=== PATIENT | female | born 1950 | race Hispanic/Latino ===

== ENCOUNTER 2016-08-25 23:33 | Inpatient (IN) | payer MEDICARE ==
[2016-08-26] MEDS ORDERED: Oxycodone/Acetaminophen 5/325 mg Tab PO ONE (00:43)
[2016-08-26] MEDS ORDERED: Oxycodone/Acetaminophen 5/325 mg Tab ONE (00:46)
--- NOTE | 2016-08-26 01:08 | ED PDOC ---
HPI: Trauma/Fall - HPI Time Seen by Provider: 08/25/16 23:50 Chief Complaint (Nursing): Trauma Chief Complaint (Provider): Post trip and fall History Per: Patient History/Exam Limitations: no limitations Onset/Duration Of Symptoms: Hrs Additional Complaint(s): Anneliese Copeland, a 66 year old patient presents to the ED post trip and fall. The patient states that she fell down several stairs and hit her left rib cage. the patient reports that she feels pain in her left ribs when she takes deep breaths. She denies head trauma, loss of consciousness, fever, cough and allergies. Past Medical History Reviewed: Historical Data, Nursing Documentation, Vital Signs Vital Signs: Last Vital Signs Temp 98.6 F 08/25/16 23:45 Pulse 69 08/25/16 23:45 Resp 16 08/25/16 23:45 BP 133/75 08/25/16 23:45 Pulse Ox 96 08/26/16 03:14 - Medical History PMH: Anxiety, Hyperlipidemia - Surgical History Surgical History: No Surg Hx - Family History Family History: States: Unknown Family Hx - Living Arrangements Living Arrangements: With Family - Social History Current smoker - smoking cessation education provided: Yes SMOKER/PACKS PER DAY:: 1 Drugs: Denies - Home Medications Home Medications: Ambulatory Orders Medication Instructions Recorded ALPRAZolam [Xanax] 0.25 mg PO HS 08/26/16 Aspirin [Aspirin Chewable] 81 mg PO DAILY 08/26/16 Ezetimibe [Zetia] 10 mg PO DAILY 08/26/16 Mv-Mn/Iron/Folic Acid/Herb 190 1 tab PO DAILY 08/26/16 [Vitamin D3 Complete Caplet] PARoxetine [Paxil] 30 mg PO DAILY 08/26/16 Pravastatin Sodium [Pravachol] 40 mg PO DAILY 08/26/16 buPROPion XL [Wellbutrin XL] 300 mg PO DAILY 08/26/16 - Allergies Allergies/Adverse Reactions: Allergies Allergy/AdvReac Type Severity Reaction Status Date / Time No Known Allergies Allergy Verified 08/26/16 00:33 Review of Systems Constitutional: Positive for: Other (no allergies). Negative for: Fever Respiratory: Negative for: Cough Physical Exam - Reviewed Nursing Documentation Reviewed: Yes Vital Signs Reviewed: Yes - Physical Exam Appears: Positive for: Non-toxic (not tachypneic.), No Acute Distress Head Exam: Positive for: ATRAUMATIC, NORMOCEPHALIC Skin: Positive for: Normal Color, Warm, Dry Eye Exam: Positive for: Normal appearance ENT: Positive for: Normal ENT Inspection Neck: Positive for: Normal, Painless ROM, Supple Cardiovascular/Chest: Positive for: Regular Rate, Rhythm. Negative for: Tachycardia Respiratory: Positive for: Normal Breath Sounds. Negative for: Wheezing, Respiratory Distress Gastrointestinal/Abdominal: Positive for: Normal Exam, Soft, Tenderness ( tenderness in the left rib area.) Back: Positive for: Normal Inspection. Negative for: L CVA Tenderness, R CVA Tenderness Extremity: Positive for: Normal ROM. Negative for: Tenderness Neurologic/Psych: Positive for: Alert, Oriented - Laboratory Results Result Diagrams: 08/26/16 02:40 08/26/16 02:40 - ECG O2 Sat by Pulse Oximetry: 96 (RA) Pulse Ox Interpretation: Normal Medical Decision Making Medical Decision Makin Initial impression: 66 year old female patient presenting post trip and fall. rule out rib fractures Initial plan: * Ribs and Chest LT * Percocet 5/325 mg 1 tab PO * Toradol 60mg IM 0150 XR Left Ribs and AP Chest Impression: 1. LEFT rib fractures. Small LEFT pneumothorax. CT scan needed to further evaluate. 2. Incidental/non-acute findings are described above pt made aware of results. pt breathing comfortably. in no respiratory distress., o2 sat on RA ia [address] Chest Without Intravenous Contrast Impression: 1. LEFT rib fractures. Small to moderate LEFT pneumothorax. 2. Incidental/non-acute findings are described above. 230 called leandra Morales yardage control operator forming and food cooking machine operator yardage control operator forming who recommend just observation and admit to ICU. pt aware of plan. o2 sat normal, pt in no distress and comfortable. pt placed on telephone appointment clerk and agreeable to plan to admit to ICU. Scribe Attestation Documented by Mi Osei acting as a scribe for Kvng Harding MD. Provider Attestation: All medical record entries made by the Scribe were at my direction and personally dictated by me. I have reviewed the chart and agree that the record accurately reflects my personal performance of the history, physical exam, medical decision making, and the department course for this patient. I have also personally directed, reviewed, and agree with the discharge instructions and disposition. Disposition - Clinical Impression Clinical Impression: Rib fractures, Pneumothorax - Patient ED Disposition Is Patient to be Admitted: Yes - Disposition Disposition Time: 02:00 Condition: STABLE
--- NOTE | 2016-08-26 01:50 | RAD ---
EXAM: XR Left Ribs and AP Chest, 3 or More Views CLINICAL HISTORY: 66 years old, female; Injury or trauma; Fall; Initial encounter; Rib area, left side; Blunt trauma; Additional info: Fall rule out rib fractures TECHNIQUE: Frontal and oblique views of the left ribs and frontal view of the chest. COMPARISON: No relevant prior studies available. FINDINGS: Lungs: No consolidation. Pleural space: Small LEFT pleural effusion. Small LEFT pneumothorax. Heart: No cardiomegaly. Mediastinum: Unremarkable. Bones/joints: Fractures LEFT seventh, eighth ribs. IMPRESSION: 1. LEFT rib fractures. Small LEFT pneumothorax. Recommend CT. 2. Incidental/non-acute findings are described above.
--- NOTE | 2016-08-26 02:27 | CT ---
EXAM: CT Chest Without Intravenous Contrast CLINICAL HISTORY: 66 years old, female; Pain and injury or trauma; Fall; Initial encounter; Blunt trauma (contusions or hematomas); Chest pain; Additional info: Assess for rib fractures and rule out ptx TECHNIQUE: Axial computed tomography images of the chest without intravenous contrast. This CT exam was performed using one or more of the following dose reduction techniques: automated exposure control, adjustment of the mA and/or kV according to patient size, and/or use of iterative reconstruction technique. Coronal and sagittal reformatted images were created and reviewed. COMPARISON: CR - RIBS AND CHEST LT 08/26/2016 12:44:22 AM FINDINGS: Lungs: Mild emphysematous changes. Mild dependent atelectasis. No consolidation. Minimal ground glass opacity LEFT lung base, nonspecific. Pleural space: Trace LEFT pleural effusion. Small to moderate LEFT pneumothorax. Heart: No cardiomegaly. No significant pericardial effusion. Mediastinum: Small hiatal hernia. Minimal mucus within trachea. Bones/joints: Fracture LEFT sixth, seventh, eighth, ninth ribs. Soft tissues: Unremarkable. Vasculature: Mild atherosclerotic disease of aorta. No aortic aneurysm. Lymph nodes: No pathologically enlarged lymph nodes. Kidneys and ureters: Few small renal calculi. IMPRESSION: 1. LEFT rib fractures. Small to moderate LEFT pneumothorax. 2. Incidental/non-acute findings are described above.
[2016-08-26 02:43] LABS: BASO # 0.1 K/uL (0.0-0.2); BASO % 0.6 % (0.0-2.0); EOS # 0.1 K/uL (0.0-0.7); EOS % 0.9 % (0.0-4.0); HEMATOCRIT 38.2 % (34.0-47.0); LYMPH # 1.2 K/uL (1.0-4.3); LYMPH % 9.6 % (20.0-40.0); MEAN CELL VOLUME 96.1 fl (81.0-99.0); MEAN CORPUSCULAR HEMOGLOBIN 31.5 pg (27.0-31.0); MEAN CORPUSCULAR HGB CONC 32.8 g/dL (33.0-37.0); MEAN PLATELET VOLUME 8.8 fl (7.2-11.7); MONO # 0.6 K/uL (0.0-0.8); MONO % 4.9 % (0.0-10.0); NEUT # 10.7 K/uL (1.8-7.0); NRBC % 0.1 % (0.0-0.0); PLATELET COUNT 186 K/uL (130-400); RED CELL DISTRIBUTION WIDTH 14.8 % (11.5-14.5); WHITE BLOOD COUNT 12.8 K/uL (4.8-10.8)
[2016-08-26 02:48] LABS: POTASSIUM 4.2 MMOL/L (3.6-5.0)
[2016-08-26 02:50] LABS: ALB/GLOB RATIO 1.5 (1.0-2.1); BILIRUBIN,TOTAL 0.4 mg/dl (0.2-1.3); TOTAL PROTEIN 6.6 G/DL (6.3-8.2)
[2016-08-26 02:51] LABS: CALCIUM 8.5 mg/dL (8.4-10.2)
--- NOTE | 2016-08-26 02:53 | CP.PCM.HP ---
History of Present Illness - History of Present Illness History of Present Illness: PCP: Not on Staff Chief Complaint: Fall with pain to left side HPI: 66 years old female here from [place] for a vacation, has Hx of Anxiety depression and HLD, She slipped while using the stairs, receiving trauma to the left side. She referred no LOC, Dizziness, headaches, nausea,vomits nor fever. PMH: HLD; Anxiety and Depressive disorder, Nephrolithiasis PSH: Carpal tunnel surgery SH: No Smoking; No Alcohol; No illegal drug use FH: No known family Hx Allergies: NKDA Present on Admission - Present on Admission Any Indicators Present on Admission: No History of DVT/PE: No History of Uncontrolled Diabetes: No Urinary Catheter: No Decubitus Ulcer Present: No Review of Systems - Constitutional Constitutional: absent: Anorexia, Chills, Fatigue, Fever, Headache - EENT Eyes: absent: Blurred Vision, Diplopia, Photophobia, Requires Corrective Lenses , Sees Flashes Ears: absent: Decreased Hearing, Ear Discharge, Ear Pain, Tinnitus Nose/Mouth/Throat: absent: Epistaxis, Nasal Congestion, Nasal Discharge, Sinus Pain, Sinus Pressure - Cardiovascular Cardiovascular: absent: Chest Pain, Dyspnea, Edema, Syncope - Respiratory Respiratory: absent: Cough, Dyspnea, Wheezing, Chest Congestion - Gastrointestinal Gastrointestinal: absent: Constipation, Diarrhea, Nausea, Vomiting - Genitourinary Genitourinary: absent: Dysuria, Flank Pain, Hematuria, Urinary Frequency - Musculoskeletal Musculoskeletal: absent: Arthralgias, Muscle Weakness Additional comments: Pain to the left lateral chest wall - Integumentary Integumentary: absent: Pruritus, Rash, Skin Ulcer, Sores, Striae, Swelling - Neurological Neurological: absent: Confusion, Dizziness, Headaches, Vertigo, Weakness - Psychiatric Psychiatric: Anxiety, Depression. absent: Panic Attacks - Endocrine Endocrine: absent: Palpitations, Polydipsia, Polyphagia, Polyuria - Hematologic/Lymphatic Hematologic: absent: Easy Bleeding, Easy Bruising Past Patient History - Past Social History Smoking Status: Never Smoked Chewing Tobacco Use: No Cigar Use: No Alcohol: None Drugs: Denies Home Situation {Lives}: With Family - CARDIAC Hx Hypercholesterolemia: Yes - PULMONARY Hx Respiratory Disorders: No - NEUROLOGICAL Hx Neurological Disorder: No - HEENT Hx HEENT Problems: No - RENAL Hx Chronic Kidney Disease: Yes Hx Kidney Stones: Yes - ENDOCRINE/METABOLIC Hx Endocrine Disorders: No - HEMATOLOGICAL/ONCOLOGICAL Hx Blood Disorders: No - INTEGUMENTARY Hx Dermatological Problems: No - MUSCULOSKELETAL/RHEUMATOLOGICAL Hx Musculoskeletal Disorders: No - GASTROINTESTINAL Hx Gastrointestinal Disorders: No - GENITOURINARY/GYNECOLOGICAL Hx Genitourinary Disorders: No - PSYCHIATRIC Hx Psychophysiologic Disorder: Yes Hx Anxiety: Yes Hx Depression: Yes Hx Substance Use: No - SURGICAL HISTORY Hx Surgeries: Yes Other/Comment: Carpal Tunnel surgery - ANESTHESIA Hx Anesthesia: Yes Hx Anesthesia Reactions: No Meds Allergies/Adverse Reactions: Allergies Allergy/AdvReac Type Severity Reaction Status Date / Time No Known Allergies Allergy Verified 08/26/16 00:33 Physical Exam - Constitutional Appears: No Acute Distress - Head Exam Head Exam: ATRAUMATIC, NORMAL INSPECTION, NORMOCEPHALIC - Eye Exam Eye Exam: EOMI, Normal appearance Pupil Exam: NORMAL ACCOMODATION, PERRL - ENT Exam ENT Exam: Mucous Membranes Moist, Normal Exam, Normal External Ear Exam, Normal Oropharynx - Neck Exam Neck exam: Positive for: Full Rom, Normal Inspection. Negative for: Lymphadenopathy, Tenderness - Respiratory Exam Respiratory Exam: Clear to Auscultation Bilateral. absent: Rales, Rhonchi, Wheezes - Cardiovascular Exam Cardiovascular Exam: REGULAR RHYTHM, RRR, +S1, +S2. absent: Gallop, JVD - GI/Abdominal Exam GI & Abdominal Exam: Normal Bowel Sounds, Soft. absent: Organomegaly, Tenderness - Rectal Exam Rectal Exam: Deferred - Extremities Exam Extremities exam: Positive for: normal inspection. Negative for: tenderness Additional comments: Pain to the lateral left chest wall on palpation , and inspiration. - Back Exam Back exam: NORMAL INSPECTION Additional comments: Pain to the lateral left chest wall on palpation , and inspiration. - Neurological Exam Neurological exam: Alert, CN II-XII Intact, Oriented x3, Reflexes Normal - Psychiatric Exam Psychiatric exam: Normal Affect, Normal Mood - Skin Skin Exam: Dry, Intact, Normal Color, Warm Results - Vital Signs Recent Vital Signs: Last Vital Signs Temp 98.6 F 08/25/16 23:45 Pulse 69 08/25/16 23:45 Resp 16 08/25/16 23:45 BP 133/75 08/25/16 23:45 Pulse Ox 96 08/26/16 02:44 - Labs Result Diagrams: 08/26/16 02:40 08/26/16 02:40 Labs: Laboratory Results - last 24 hr 08/26/16 02:40 WBC 12.8 H RBC 3.98 Hgb 12.5 Hct 38.2 MCV 96.1 MCH 31.5 H MCHC 32.8 L RDW 14.8 H Plt Count 186 MPV 8.8 Neut % (Auto) 84.0 H Lymph % (Auto) 9.6 L Mckean % (Auto) 4.9 Eos % (Auto) 0.9 Baso % (Auto) 0.6 Neut # 10.7 H Lymph # 1.2 Mckean # 0.6 Eos # 0.1 Baso # 0.1 - Imaging and Cardiology Ribs and Chest Status: Image reviewed by me, Report reviewed by me Additional comment: Small left pleural effusion Small pneumothorax Left rib fracture CT scan - chest Status: Report reviewed by me Additional comment: fracture of Left 6th, 7th, 8th and 9th ribs. Mild dependent atelectasis Assessment & Plan - Assessment and Plan (Free Text) Assessment: #. Left Small to Medium Pneumothorax #. Left rib fracture #. Dehydration #. Leukocytosis Plan: 66 years old female here from [place] for a vacation, has Hx of Anxiety depression and HLD, She slipped while using the stairs, receiving trauma to the left side. She referred no LOC, Dizziness, headaches, nausea,vomits nor fever. #. Left Small to Medium Pneumothorax secondary to Fall and lung trauma - Follow up Chest Radiograft to evaluate Progression #. Traumatic Left rib fracture. 6th, 7th, 8th,and 9th with Left rib pains - Pain management with Toradol #. Dehydration - IV Fluid at NS @ 100mls/hr #. Neutrophilic Leukocytosis, Reactive #. #. DVT Prophylaxis with SCD #. Code Status: Full - Date & Time Date: 08/26/16 Time: 02:53
[2016-08-26] MEDS ORDERED: Sodium Chloride 0.9% 1,000 ML IV SCH (03:30)
[2016-08-26 03:55] LABS: EOSINOPHIL 1 % (0-7); NEUTROPHIL 77 % (42-75); REACTIVE LYMPHOCYTES 1 % (0-0); TOTAL CELLS COUNTED 100
--- NOTE | 2016-08-26 09:02 | CP.PCM.CON ---
History of Present Illness - History of Present Illness History of Present Illness: Thoracic Surgery - Dr. De Jesus 66F w/ hx HL, MVP, admitted to the hospital last night s/p Fall down the stairs and suffering Fx ribs 6-10. Pt currently states her pain is much better than it was yesterday. She is able to sit up in bed and able to perform deep inspiration with only mild pain posteriorly. She denies any SOB, Cough, Fevers/ Chills, N/V. Pt states she does smoke 1 pack/day. She has no history of any pulmonary issues. PMH: HL, MVP, Depression/Anxiety, Nephrolithiasis PSH: Carpal Tunnel Surgery From [place], Smokes 1 pack/day, no other drug use Meds as per chart NKDA CT chest reviewed, shows fx of ribs 6-10 with small pneumothorax and trace effusion which is likely hemothorax. Review of Systems - Review of Systems All systems: reviewed and no additional remarkable complaints except (as per HPI ) Past Patient History - Past Medical History & Family History Past Medical History?: Yes - Past Social History Smoking Status: Heavy Smoker > 10 Cigarettes Daily - CARDIAC Hx Cardiac Disorders: Yes Hx Mitral Valve Prolapse: Yes - PULMONARY Hx Respiratory Disorders: No - NEUROLOGICAL Hx Neurological Disorder: No - HEENT Hx HEENT Problems: Yes Other/Comment: Uses glasses for distance. - RENAL Hx Chronic Kidney Disease: Yes Hx Kidney Stones: Yes - ENDOCRINE/METABOLIC Hx Endocrine Disorders: No - HEMATOLOGICAL/ONCOLOGICAL Hx Blood Disorders: No - INTEGUMENTARY Hx Dermatological Problems: No - MUSCULOSKELETAL/RHEUMATOLOGICAL Hx Falls: Yes - GASTROINTESTINAL Hx Gastrointestinal Disorders: No - GENITOURINARY/GYNECOLOGICAL Hx Genitourinary Disorders: No Hx Urinary Tract Infection: Yes - PSYCHIATRIC Hx Substance Use: No - SURGICAL HISTORY Hx Surgeries: Yes Other/Comment: Carpal Tunnel surgery - ANESTHESIA Hx Anesthesia: Yes Hx Anesthesia Reactions: No Hx Malignant Hyperthermia: No Has any member of the family had a problem w/ anesthesia?: No Meds Allergies/Adverse Reactions: Allergies Allergy/AdvReac Type Severity Reaction Status Date / Time copper Allergy RASH Verified 08/26/16 04:35 nickel Allergy RASH Uncoded 08/26/16 04:35 - Medications Medications: Current Medications Alprazolam (Xanax) 0.25 mg PO HS [facility] Stop: 09/02/16 22:01 Aspirin (Aspirin Chewable) 81 mg PO DAILY [facility] Ezetimibe (Zetia) 10 mg PO DAILY [facility] Sodium Chloride (Sodium Chloride 0.9%) 1,000 mls @ 75 mls/hr IV .[id number] ROW[facility] Stop: 08/27/16 03:23 Last Admin: 08/26/16 04:09 Dose: 75 mls/hr Ketorolac Tromethamine (Toradol) 30 mg IVP Q6 PRN PRN Reason: Pain, severe (8-10) Ketorolac Tromethamine (Toradol) 15 mg IVP Q6 PRN PRN Reason: Pain, moderate (4-7) Last Admin: 08/26/16 07:19 Dose: 15 mg Paroxetine HCl (Paxil) 30 mg PO DAILY [facility] Pravastatin Sodium (Pravachol) 40 mg PO DAILY [facility] Physical Exam - Constitutional Appears: Well, No Acute Distress - Head Exam Head Exam: ATRAUMATIC, NORMAL INSPECTION, NORMOCEPHALIC - Eye Exam Eye Exam: EOMI, Normal appearance - ENT Exam ENT Exam: Mucous Membranes Moist - Respiratory Exam Respiratory Exam: Chest Wall Tenderness (mild posteriorly), NORMAL BREATHING PATTERN. absent: Respiratory Distress Additional comments: no ecchymosis, no crepitus - Cardiovascular Exam Cardiovascular Exam: REGULAR RHYTHM - Neurological Exam Neurological exam: Alert, Oriented x3 - Psychiatric Exam Psychiatric exam: Normal Affect, Normal Mood - Skin Skin Exam: Dry, Intact Results - Vital Signs Recent Vital Signs: Last Vital Signs Temp 97.9 F 08/26/16 07:24 Pulse 65 08/26/16 07:24 Resp 17 08/26/16 07:24 BP 113/54 L 08/26/16 07:24 Pulse Ox 96 08/26/16 07:24 - Labs Result Diagrams: 08/26/16 02:40 08/26/16 02:40 - Imaging and Cardiology CT scan - chest Status: Image reviewed by me, Report reviewed by me Assessment & Plan - Assessment and Plan (Free Text) Assessment: 66F s/p fall w/ rib fx 6-10 and small pneumothorax -Pain control, currently controlled on Toradol -Incentive Spirometer, encourage hourly use -Supplemental O2 -CXR today with small apical PTX -No need for surgical intervention -Repeat CXR tomorrow DW Dr. Neal Leon PGY2
[2016-08-26] MEDS: Pravastatin Sodium 40 MG TAB PO SCH ×2 (09:03→20:37)
--- NOTE | 2016-08-26 11:54 | CP.PCM.PN ---
Subjective - Date & Time of Evaluation Date of Evaluation: 08/26/16 Time of Evaluation: 11:44 - Subjective Subjective: Reason for consultation: fall, rib fxs, and pneumothorax left. Requested by Dr. Stephens. Pt s/e, chart and imaging studies reviewed. 66 yo female with hx of s/p fall down the stairs, and ct: fx ribs 6-10 left, and small low ant pneumothorax. I discussed with the pt and her that it will take 3-5 days to complete reexpansion, and not to fly down to [place] until that time. If she has to go down there now, then will need Heimlich valve , which is a surgical procedure they do not like. Will follow with daily chest xray, under close observation. d/w Dr. Leon. Objective - Vital Signs/Intake and Output Vital Signs (last 24 hours): Temp Pulse Resp BP Pulse Ox 97.9 F 65 17 113/54 L 96 08/26/16 07:24 08/26/16 07:24 08/26/16 07:24 08/26/16 07:24 08/26/16 07:24 - Medications Medications: Current Medications Alprazolam (Xanax) 0.25 mg PO [facility] Stop: 09/02/16 22:01 Aspirin (Aspirin Chewable) 81 mg PO DAILY [facility] Last Admin: 08/26/16 09:41 Dose: Not Given Ezetimibe (Zetia) 10 mg PO DAILY [facility] Last Admin: 08/26/16 09:03 Dose: Not Given Home Med (Bupropion Xl [Wellbutrin Xl]) 300 mg PO DAILY [facility] Ketorolac Tromethamine (Toradol) 30 mg IVP Q6 PRN PRN Reason: Pain, severe (8-10) Ketorolac Tromethamine (Toradol) 15 mg IVP Q6 PRN PRN Reason: Pain, moderate (4-7) Last Admin: 08/26/16 07:19 Dose: 15 mg Paroxetine HCl (Paxil) 60 mg PO DAILY [facility] Pravastatin Sodium (Pravachol) 40 mg PO DAILY [facility]
[2016-08-26] MEDS: Oxycodone/Acetaminophen 5/325 mg Tab PO PRN (12:32)
--- NOTE | 2016-08-26 13:15 | PN ---
DATE: 08/26/2016 The patient in ICU, bed 434. TIME SPENT: 35 minutes. The patient is seen and evaluated at the bedside. Case was discussed in a.m. rounds with [facility] critical care team. Events since admission reviewed with overnight hospitalist. Past medical and surgical history reviewed. A 66-year-old female with history of depression, anxiety, mitral valve prolapse and nephrolithiasis, carpal tunnel surgery, chronic current smoker. Admitted with pain left side of the chest, status pos t fall down the stairs and sustained multiple rib fractures involving 6-10 and small to moderate left pneumothorax. Seen by surgery consult, recommended monitoring with no surgical intervention. The p atient remains alert, awake, follows commands, appropriate. Noted to have pain on deep inspiration. No cough, no abdominal pain, no diarrhea, no dysuria, no headache, no loss of consciousness. PHYSICAL EXAMINATION: VITAL SIGNS: Temperature 97.9, heart rate , respiratory rate 17, thoracoabdominal, blood pressu re 113/54, saturation 96% on room air. HEENT: Pupils reactive. Conjunctivae pink. Sclerae white. NECK: Supple. CHEST: Bilateral breath sounds. Reduced in intensity. Mild crepitus left axillary line, tenderness . No ecchymosis. ABDOMEN: Bowel sounds present, soft. EXTREMITIES: No clubbing, cyanosis, edema. NEUROLOGIC: Nonfocal. CURRENT MEDICATIONS: Albuterol/Atrovent inhalation 3 mL via nebulizer q. 6 hours, Xanax 0.25 mg at b edtime, aspirin 81 mg daily, Zetia 10 mg daily, Toradol 30 mg IV q. 6 p.r.n. for pain, Percocet 5/325 mg q. 4 p.r.n. for pain, Paxil 60 mg p.o. daily, Pravachol 40 mg p.o. daily. LABORATORY DATA: WBC 12.8, hemoglobin 12.5, hematocrit 38.2, platelet count 186. SMA-7: Sodium 142 , potassium 4.2, chloride 112, CO2 21, blood urea nitrogen 21, creatinine 1.1, glucose 111, calcium 8 .5, total bilirubin 0.4, AST 26, ALT 32, alkaline phosphatase 54, total protein 6.6, albumin 3.9. Repeat chest x-ray this morning: Small low anterior pneumothorax. IMPRESSION: 1. Multiple rib fractures, status post fall. Continue analgesics as needed to reduce pain. 2. Contusion, left chest wall. Continue analgesics as recommended to reduce discomfort. 3. Left small anterior pneumothorax. Remains stable with no further deterioration. Seen by thoraci c surgery consult. Recommend no further intervention. Monitor closely with daily chest x-ray. 4. Chronic obstructive pulmonary disease, on DuoNeb 3 mL via nebulizer q. 6. Current smoker. Encou rage smoking cessation. 5. Continue Wellbutrin 300 mg daily. History of anxiety, depression, on Wellbutrin and Xanax. Encourage incentive spirometry. Deep venous thrombosis prophylaxis. Jett Purvis MD cc: 170 TT: 08/26/2016 13:14:58 Confirmation # [id number] Dictation # [id number] en
[2016-08-26] MEDS: Albuterol-Ipratrop 3 mg / 0.5 (3 ml) UD INH SCH ×2 (15:05→19:12)
--- NOTE | 2016-08-26 15:34 | RAD ---
HISTORY: Left Pneumothorax follow up COMPARISON: August 26, 2016. CT thorax Summary of findings on the comparison examination: Left rib fractures. Small to moderate left pneumothorax. FINDINGS: LUNGS: No active pulmonary disease. PLEURA: Pneumothorax apparent on CT is not seen on the current chest radiograph. CARDIOVASCULAR: No radiographic findings to suggest acute or significant cardiovascular disease. OSSEOUS STRUCTURES: Rib fractures, nondisplaced identified on recent CT scan are not apparent on the current study. VISUALIZED UPPER ABDOMEN: Normal. OTHER FINDINGS: None. IMPRESSION: No active disease.
--- NOTE | 2016-08-26 16:47 | RAD ---
PROCEDURE: CHEST RADIOGRAPH, 1 VIEW HISTORY: pneumothorax COMPARISON: None available. FINDINGS: LUNGS: Clear. PLEURA: No pneumothorax or pleural fluid seen. CARDIOVASCULAR: Normal. OSSEOUS STRUCTURES: No significant abnormalities. VISUALIZED UPPER ABDOMEN: Normal. OTHER FINDINGS: None. IMPRESSION: No active disease.
[2016-08-27] MEDS: Oxycodone/Acetaminophen 5/325 mg Tab PO PRN (01:40)
[2016-08-27 05:17] LABS: HEMATOCRIT 37.3 % (34.0-47.0); MEAN CELL VOLUME 96.6 fl (81.0-99.0); MEAN CORPUSCULAR HEMOGLOBIN 32.1 pg (27.0-31.0); MEAN CORPUSCULAR HGB CONC 33.3 g/dL (33.0-37.0); RED CELL DISTRIBUTION WIDTH 14.5 % (11.5-14.5); WHITE BLOOD COUNT 8.3 K/uL (4.8-10.8)
[2016-08-27 05:18] LABS: BLOOD UREA NITROGEN 19 mg/dl (7-17); CALCIUM 7.8 mg/dL (8.4-10.2); CARBON DIOXIDE 22 mmol/L (22-30); CHLORIDE 115 mmol/L (98-107); GFR AFRICAN-AMERICAN > 60; GLUCOSE,RANDOM 94 mg/dL (65-105); SODIUM 143 mmol/l (132-148)
[2016-08-27 05:28] LABS: PARTIAL THROMBOPLASTIN TIME 27.5 SECONDS (23.3-32.5)
--- NOTE | 2016-08-27 07:35 | CP.PCM.PN ---
Subjective - Date & Time of Evaluation Date of Evaluation: 08/27/16 Time of Evaluation: 07:31 - Subjective Subjective: General Surgery Consult Note for Dr. De Jesus This 66F was seen and examined this AM at bedside. She reports no acute events overnight. She is laying comfortably in bed. She reports pain with deep inspiration. Her CXR this morning shows no change in comparison to yesterdays chest X-ray. Objective - Vital Signs/Intake and Output Vital Signs (last 24 hours): Temp Pulse Resp BP Pulse Ox 98.3 F 61 14 125/75 95 08/27/16 06:00 08/27/16 06:00 08/27/16 06:00 08/27/16 06:00 08/27/16 06:00 Intake and Output: 08/27/16 08/27/16 06:59 18:59 Intake Total 275 Balance 275 - Medications Medications: Current Medications Albuterol/Ipratropium (Duoneb 3 Mg/0.5 Mg (3 Ml) Ud) 3 ml INH RTID [facility] Last Admin: 08/26/16 19:12 Dose: 3 ml Alprazolam (Xanax) 0.25 mg PO [facility] Stop: 09/02/16 22:01 Last Admin: 08/26/16 22:00 Dose: Not Given Aspirin (Aspirin Chewable) 81 mg PO DAILY [facility] Last Admin: 08/26/16 20:37 Dose: 81 mg Ezetimibe (Zetia) 10 mg PO DAILY [facility] Last Admin: 08/26/16 20:37 Dose: 10 mg Famotidine (Pepcid) 20 mg PO BID [facility] Last Admin: 08/26/16 16:18 Dose: 20 mg Home Med (Bupropion Xl [Wellbutrin Xl]) 300 mg PO DAILY [facility] Last Admin: 08/26/16 16:18 Dose: Not Given Ketorolac Tromethamine (Toradol) 30 mg IVP Q6 PRN PRN Reason: Pain, severe (8-10) Last Admin: 08/27/16 01:44 Dose: 30 mg Ketorolac Tromethamine (Toradol) 15 mg IVP Q6 PRN PRN Reason: Pain, moderate (4-7) Last Admin: 08/26/16 07:19 Dose: 15 mg Oxycodone/Acetaminophen (Percocet 5/325 Mg Tab) 1 tab PO Q4 PRN PRN Reason: Pain, severe (8-10) Stop: 08/29/16 12:13 Last Admin: 08/27/16 01:40 Dose: 1 tab Paroxetine HCl (Paxil) 60 mg PO DAILY [facility] Pravastatin Sodium (Pravachol) 40 mg PO DAILY [facility] Last Admin: 08/26/16 20:37 Dose: 40 mg - Labs Labs: 08/27/16 04:35 08/27/16 04:35 PT 10.4 SECONDS (9.6-11.2) 08/27/16 04:35 INR 1.00 (0.92-1.08) 08/27/16 04:35 APTT 27.5 SECONDS (23.3-32.5) 08/27/16 04:35 - Constitutional Appears: Non-toxic, No Acute Distress - Head Exam Head Exam: ATRAUMATIC, NORMOCEPHALIC - Eye Exam Eye Exam: EOMI, Normal appearance - ENT Exam ENT Exam: Mucous Membranes Moist - Respiratory Exam Respiratory Exam: NORMAL BREATHING PATTERN - Cardiovascular Exam Cardiovascular Exam: REGULAR RHYTHM - Neurological Exam Neurological Exam: Alert, Awake - Psychiatric Exam Psychiatric exam: Normal Affect, Normal Mood - Skin Skin Exam: Dry, Intact Assessment and Plan - Assessment and Plan (Free Text) Assessment: This is a 66F s/p fall with rib fractures on the left ribs 6-9 with a small apical pneumoithorax. Vital signs stable. Labs WNL Her CXR today shows no change from yesterdays CXR. Continue insentive spirometry Continue pain control No plans for surgical intervention at this time Will discuss with Dr. Neal Nina PGY-1
[2016-08-27 07:42] VITALS: BP 128/80
[2016-08-27] MEDS: Albuterol-Ipratrop 3 mg / 0.5 (3 ml) UD INH SCH (07:45)
--- NOTE | 2016-08-27 07:47 | CP.PCM.PN ---
Subjective - Date & Time of Evaluation Date of Evaluation: 08/27/16 Time of Evaluation: 07:47 - Subjective Subjective: pt doing well. no distress/complaints. pending reeval by surgery./pulm for possible dc after ahving traumatic rib fx nad pneumothorax. pain controlled w/ meds and pt is afebrile. amlabs wnl. seen by dr sherman and downgraded from icu. Objective - Vital Signs/Intake and Output Vital Signs (last 24 hours): Temp Pulse Resp BP Pulse Ox 97.9 F 67 19 128/80 95 08/27/16 07:42 08/27/16 07:42 08/27/16 07:42 08/27/16 07:42 08/27/16 07:42 Intake and Output: 08/27/16 08/27/16 06:59 18:59 Intake Total 275 Balance 275 - Medications Medications: Current Medications Albuterol/Ipratropium (Duoneb 3 Mg/0.5 Mg (3 Ml) Ud) 3 ml INH RTID [facility] Last Admin: 08/27/16 07:45 Dose: 3 ml Alprazolam (Xanax) 0.25 mg PO [facility] Stop: 09/02/16 22:01 Last Admin: 08/26/16 22:00 Dose: Not Given Aspirin (Aspirin Chewable) 81 mg PO DAILY [facility] Last Admin: 08/26/16 20:37 Dose: 81 mg Ezetimibe (Zetia) 10 mg PO DAILY [facility] Last Admin: 08/26/16 20:37 Dose: 10 mg Famotidine (Pepcid) 20 mg PO BID [facility] Last Admin: 08/26/16 16:18 Dose: 20 mg Home Med (Bupropion Xl [Wellbutrin Xl]) 300 mg PO DAILY [facility] Last Admin: 08/26/16 16:18 Dose: Not Given Ketorolac Tromethamine (Toradol) 30 mg IVP Q6 PRN PRN Reason: Pain, severe (8-10) Last Admin: 08/27/16 01:44 Dose: 30 mg Ketorolac Tromethamine (Toradol) 15 mg IVP Q6 PRN PRN Reason: Pain, moderate (4-7) Last Admin: 08/26/16 07:19 Dose: 15 mg Oxycodone/Acetaminophen (Percocet 5/325 Mg Tab) 1 tab PO Q4 PRN PRN Reason: Pain, severe (8-10) Stop: 08/29/16 12:13 Last Admin: 08/27/16 01:40 Dose: 1 tab Paroxetine HCl (Paxil) 60 mg PO DAILY [facility] Pravastatin Sodium (Pravachol) 40 mg PO DAILY [facility] Last Admin: 08/26/16 20:37 Dose: 40 mg - Labs Labs: 08/27/16 04:35 08/27/16 04:35 PT 10.4 SECONDS (9.6-11.2) 08/27/16 04:35 INR 1.00 (0.92-1.08) 08/27/16 04:35 APTT 27.5 SECONDS (23.3-32.5) 08/27/16 04:35 - Constitutional Appears: Well, Non-toxic, No Acute Distress - Head Exam Head Exam: ATRAUMATIC, NORMAL INSPECTION, NORMOCEPHALIC - Eye Exam Eye Exam: EOMI, Normal appearance, PERRL Pupil Exam: NORMAL ACCOMODATION, PERRL - ENT Exam ENT Exam: Mucous Membranes Moist, Normal Exam - Neck Exam Neck Exam: Full ROM, Normal Inspection. absent: Lymphadenopathy - Respiratory Exam Respiratory Exam: Clear to Ausculation Bilateral, NORMAL BREATHING PATTERN - Cardiovascular Exam Cardiovascular Exam: REGULAR RHYTHM, +S1, +S2. absent: Murmur - GI/Abdominal Exam GI & Abdominal Exam: Soft, Normal Bowel Sounds. absent: Tenderness - Rectal Exam Rectal Exam: NORMAL INSPECTION - Extremities Exam Extremities Exam: Full ROM, Normal Capillary Refill, Normal Inspection. absent : Joint Swelling, Pedal Edema - Back Exam Back Exam: NORMAL INSPECTION - Neurological Exam Neurological Exam: Alert, Awake, CN II-XII Intact, Normal Gait, Oriented x3 - Psychiatric Exam Psychiatric exam: Normal Affect, Normal Mood - Skin Skin Exam: Dry, Intact, Normal Color, Warm Assessment and Plan (1) Left rib fracture Assessment & Plan: pain control, pulm and ct surgery consult pulm consult Status: Acute (2) Pneumothorax Assessment & Plan: icu care pulm and ct surg consult for downgrade nad possible dc today cxr demonstrates no further pneumothorax Status: Acute
--- NOTE | 2016-08-27 09:29 | CON ---
DATE: 08/27/2016 The patient is a 66-year-old female who was admitted to the intensive care unit following an accident al fall with a left chest wall trauma and resultant pneumothorax noticed on a CAT scan of the chest. She was seen in the Emergency Room, admitted for workup and therapy. PAST MEDICAL HISTORY: Unremarkable except for depression and cigarette smoking. FAMILY HISTORY: Noncontributory. SOCIAL HISTORY: She smokes a pack of cigarettes daily, does not drink. REVIEW OF SYSTEMS: Essentially unremarkable. PHYSICAL EXAMINATION: GENERAL: The patient is alert, oriented, appears to be comfortable at present. She denies chest cristian ns or shortness of breath and is able to ambulate around her room with no problems. VITAL SIGNS: Blood pressure 128/80 with a pulse of 67, respiratory rate 19, O2 sat 95% on room air. HEENT: Pupils equal, react to light and accommodation. JVP flat. Mouth shows fair hygiene. LUNGS: Clear fair aeration. No wheezing, no rales. No subQ emphysema. HEART: Regular. No murmurs or gallops. ABDOMEN: Soft, nontender, no organomegaly. EXTREMITIES: Shows no edema or cyanosis. CENTRAL NERVOUS SYSTEM: Grossly intact. Chest x-ray shows no acute cardiopulmonary pathology, but CT scan of the chest is remarkable for a ve ry small left apical pneumothorax, probably less than 10%, and emphysematous changes in both lungs. IMPRESSION: Traumatic pneumothorax, probably secondary to rib fractures following an accidental fall , the left lung. PLAN: Since the pneumothorax has been stable for the past 24 hours and has not progressed and the pa tient has no symptoms and oxygen saturation appears stable, it will be okay to discharge her and foll ow up with primary care doctor as an outpatient. She should have a CT scan of the chest repeated in about 2 weeks to reevaluate the pneumothorax. She was advised not to fly in an airplane until this h as resolved. Will sign off case and see again at your request. She is also advised to stop smoking. Mario Etienne MD cc: [id number] TT: 08/27/2016 09:28:52 Confirmation # [id number] Dictation # [id number]
--- NOTE | 2016-08-27 11:11 | RAD ---
PROCEDURE: CHEST RADIOGRAPH, 1 VIEW HISTORY: F/U PTX COMPARISON: Comparison made with chest x-ray 08/26/[address] scan chest 08/26/2016 at 0207 hours. FINDINGS: LUNGS: Mild bibasilar atelectasis left greater than right. Suspect small left-sided effusion PLEURA: Small left apical pneumothorax again noted. Minor biapical pleural thickening. CARDIOVASCULAR: Heart size unchanged OSSEOUS STRUCTURES: Re- demonstrated is a fracture left 8th lateral rib. VISUALIZED UPPER ABDOMEN: Normal. OTHER FINDINGS: None. IMPRESSION: Small left apical pneumothorax. Mild bibasilar atelectasis left greater than right. Small left effusion suspected There is a fracture left lateral 8th rib
[2016-08-27 11:12] VITALS: PULSE 74; TEMP 98.5
[2016-08-27 11:14] VITALS: RESP 16; O2SAT 100
--- NOTE | 2016-08-27 11:38 | CP.CCUPN ---
CCU Subjective - Physician Review Events Since Last Encounter (Free Text): 08/27/16 The Patient was seen and examined at the bedside, Medical records reviewed, all clinical/lab/hemodynamic/radiographic data were reviewed and management issues were discussed and formulated, Events reviewed AAO x3, Comfortable She is feeling fine, pain well controlled Afebrile Adequate saturation on RA This morning the CXR shows no change in comparison to yesterdays CXR Pain issues, skin care, head of the bed elevation, GI/DVT prophylaxis, glycemic control were addressed. CCU Objective - Vital Signs / Intake & Output Vital Signs (Last 4 hours): Vital Signs Temp Pulse Resp BP Pulse Ox 08/27/16 10:00 74 16 100 08/27/16 08:00 98.5 F 74 08/27/16 07:42 97.9 F 67 19 128/80 95 Intake and Output (Last 8hrs): Intake & Output 08/26/16 08/27/16 08/27/16 22:59 06:59 14:59 Intake Total 530 25 350 Output Total 500 Balance 530 25 -150 Intake: IV 10 0 Oral 520 25 350 Output: Urine 500 Urine, Voided 500 Other: # Voids Urine, Voided 1 1 # Bowel Movements 0 - Physical Exam Head: Positive for: Atraumatic, Normocephalic. Negative for: Tenderness, Contusion, Swelling, Ecchymosis, Abrasion Pupils: Positive for: PERRL. Negative for: Sluggish, Non-Reactive Extroacular Muscles: Positive for: EOMI. Negative for: Gaze Palsy, Entrapment, Other Conjunctiva: Positive for: Normal. Negative for: Injected, Icteric Mouth: Positive for: Moist Mucous Membranes Pharnyx: Positive for: Normal Nose (Internal): Positive for: Normal Inspection Neck: Positive for: Normal Range of Motion, Trachea Midline. Negative for: Meningeal Signs, MIDLINE TENDERNESS, Paraspinal Tenderness, JVD, Lymphadenopathy , Bruit, Other Respiratory/Chest: Positive for: Clear to Auscultation, Good Air Exchange, Tender to Palpation. Negative for: Respiratory Distress, Accessory Muscle Use, Wheezes, Decreased Breath Sounds, Rales, Retracting, Rhonchi, Tachypneic Cardiovascular: Positive for: Regular Rate and Rhythm, Normal S1, S2, Peripheal Pulses Present. Negative for: Murmurs, Irregular Rhythm, Tachycardic, Bradycardic Abdomen: Positive for: Normal Bowel Sounds. Negative for: Tenderness, Distention, Peritoneal Signs Neurological: Positive for: GCS=15, CN II-XII Intact, Speech Normal, Motor Func Grossly Intact, Normal Sensory Function Skin: Positive for: Warm, Dry. Negative for: Rashes Psychiatric: Positive for: Alert, Oriented x 3, Normal Insight, Normal Concentration, Normal Affect. Negative for: Anxious, Agitated - Patient Studies Lab Studies: Lab Studies 08/27/16 08/27/16 08/27/16 Range/Units 04:35 04:35 04:35 WBC 8.3 (4.8-10.8) K/uL RBC 3.87 (3.80-5.20) Mil/uL Hgb 12.4 (12.0-16.0) g/dL Hct 37.3 (34.0-47.0) % MCV 96.6 (81.0-99.0) fl MCH 32.1 H (27.0-31.0) pg MCHC 33.3 (33.0-37.0) g/dL RDW 14.5 (11.5-14.5) % Plt Count 163 (130-400) K/uL PT 10.4 (9.6-11.2) SECONDS INR 1.00 (0.92-1.08) APTT 27.5 (23.3-32.5) SECONDS Sodium 143 (132-148) mmol/l Potassium 4.0 (3.6-5.0) MMOL/L Chloride 115 H (98-107) mmol/L Carbon Dioxide 22 (22-30) mmol/L Anion Gap 10 (10-20) BUN 19 H (7-17) mg/dl Creatinine 1.0 (0.7-1.2) mg/dL Est GFR ( Amer) > 60 Est GFR (Non-Af Amer) 55 Random Glucose 94 (65-105) mg/dL Calcium 7.8 L (8.4-10.2) mg/dL Laboratory Results - last 24 hr 08/27/16 08/27/16 08/27/16 04:35 04:35 04:35 WBC 8.3 RBC 3.87 Hgb 12.4 Hct 37.3 MCV 96.6 MCH 32.1 H MCHC 33.3 RDW 14.5 Plt Count 163 PT 10.4 INR 1.00 APTT 27.5 Sodium 143 Potassium 4.0 Chloride 115 H Carbon Dioxide 22 Anion Gap 10 BUN 19 H Creatinine 1.0 Est GFR ( Amer) > 60 Est GFR (Non-Af Amer) 55 Random Glucose 94 Calcium 7.8 L Review of Systems - Cardiovascular Cardiovascular: Chest Pain (AT THE SITE OF RIB FRACTURE). absent: As Per HPI, Acrocyanosis, Chest Pain at Rest, Chest Pain with Activity, Claudication, Diaphoresis, Dyspnea, Dyspnea on Exertion, Edema, Irregular Heart Rhythm, Pain Radiating to Arm/Neck/Jaw, Leg Edema, Leg Ulcers, Lightheadedness, Orthopnea, Palpitations, Paroxysmal Nocturnal Dyspnea, Pedal Edema, Radiating Pain, Rapid Heart Rate, Slow Heart Rate, Syncope, Other, UNREMARKABLE - Respiratory Respiratory: absent: As Per HPI, Cough, Dyspnea, Hemoptysis, Dyspnea on Exertion , Wheezing, Snoring, Stridor, Pain on Inspiration, Chest Congestion, Excessive Mucous Production, Change in Mucous Color, Pain with Coughing, Other, UNREMARKABLE Critical Care Progress Note - Extremities/Vascular Does the Patient have a Central Venous Catheter?: No Does the Patient need a Central Venous Catheter?: No Does the Patient have a Robledo Catheter?: No Does the Patient need a Robledo Catheter?: No - Nutrition Nutrition: Nutrition Category Date Time Status Regular Diet [DIET] Diets 08/26/16 Breakfast Active Assessment/Plan (1) Pneumothorax Status: Acute Priority: Medium Comment: Left Small Pneumothorax secondary to Fall and lung trauma Stable respiratory status this morning the CXR shows no change in comparison to yesterdays CXR CXR/CT scan as outpatient (2) Left rib fracture Status: Acute Comment: Pain management with Toradol and Oxycodone I Spirometry (3) Dehydration Status: Acute Comment: Resolved with IV Fluid (4) Leucocytosis Status: Acute Comment: Reactive Improved 12.8--->8.3
--- NOTE | 2016-08-27 12:53 | CP.PCM.DIS ---
Provider - Provider Date of Admission: 08/26/16 03:00 Attending physician: Catracho Rizzo MD Time Spent in preparation of Discharge (in minutes): 15 Hospital Course - Lab Results Lab Results: Most Recent Lab Values WBC 8.3 K/uL (4.8-10.8) 08/27/16 04:35 RBC 3.87 Mil/uL (3.80-5.20) 08/27/16 04:35 Hgb 12.4 g/dL (12.0-16.0) 08/27/16 04:35 Hct 37.3 % (34.0-47.0) 08/27/16 04:35 MCV 96.6 fl (81.0-99.0) 08/27/16 04:35 MCH 32.1 pg (27.0-31.0) H 08/27/16 04:35 MCHC 33.3 g/dL (33.0-37.0) 08/27/16 04:35 RDW 14.5 % (11.5-14.5) 08/27/16 04:35 Plt Count 163 K/uL (130-400) 08/27/16 04:35 MPV 8.8 fl (7.2-11.7) 08/26/16 02:40 Neut % (Auto) 84.0 % (50.0-75.0) H 08/26/16 02:40 Lymph % (Auto) 9.6 % (20.0-40.0) L 08/26/16 02:40 [place] % (Auto) 4.9 % (0.0-10.0) 08/26/16 02:40 Eos % (Auto) 0.9 % (0.0-4.0) 08/26/16 02:40 Baso % (Auto) 0.6 % (0.0-2.0) 08/26/16 02:40 Neut # 10.7 K/uL (1.8-7.0) H 08/26/16 02:40 Lymph # 1.2 K/uL (1.0-4.3) 08/26/16 02:40 [place] # 0.6 K/uL (0.0-0.8) 08/26/16 02:40 Eos # 0.1 K/uL (0.0-0.7) 08/26/16 02:40 Baso # 0.1 K/uL (0.0-0.2) 08/26/16 02:40 Neutrophils % (Manual) 77 % (42-75) H 08/26/16 02:40 Band Neutrophils % 4 % (0-2) H 08/26/16 02:40 Lymphocytes % (Manual) 16 % (20-50) L 08/26/16 02:40 Reactive Lymphs % 1 % (0-0) H 08/26/16 02:40 Monocytes % (Manual) 1 % (0-10) 08/26/16 02:40 Eosinophils % (Manual) 1 % (0-7) 08/26/16 02:40 Platelet Estimate Normal (NORMAL) 08/26/16 02:40 PT 10.4 SECONDS (9.6-11.2) 08/27/16 04:35 INR 1.00 (0.92-1.08) 08/27/16 04:35 APTT 27.5 SECONDS (23.3-32.5) 08/27/16 04:35 Sodium 143 mmol/l (132-148) 08/27/16 04:35 Potassium 4.0 MMOL/L (3.6-5.0) 08/27/16 04:35 Chloride 115 mmol/L (98-107) H 08/27/16 04:35 Carbon Dioxide 22 mmol/L (22-30) 08/27/16 04:35 Anion Gap 10 (10-20) 08/27/16 04:35 BUN 19 mg/dl (7-17) H 08/27/16 04:35 Creatinine 1.0 mg/dL (0.7-1.2) 08/27/16 04:35 Est GFR ( Amer) > 60 08/27/16 04:35 Est GFR (Non-Af Amer) 55 08/27/16 04:35 Random Glucose 94 mg/dL (65-105) 08/27/16 04:35 Calcium 7.8 mg/dL (8.4-10.2) L 08/27/16 04:35 Total Bilirubin 0.4 mg/dl (0.2-1.3) 08/26/16 02:40 AST 26 U/L (14-36) 08/26/16 02:40 ALT 32 U/L (9-52) 08/26/16 02:40 Alkaline Phosphatase 54 U/L (38-126) 08/26/16 02:40 Total Protein 6.6 G/DL (6.3-8.2) 08/26/16 02:40 Albumin 3.9 g/dL (3.5-5.0) 08/26/16 02:40 Globulin 2.7 gm/dL (2.2-3.9) 08/26/16 02:40 Albumin/Globulin Ratio 1.5 (1.0-2.1) 08/26/16 02:40 Discharge Exam - Head Exam Head Exam: ATRAUMATIC, NORMOCEPHALIC Discharge Plan - Discharge Medications Prescriptions: Ketorolac Tromethamine [Toradol] 10 mg PO Q6 PRN #20 tab PRN Reason: pain oxyCODONE/Acetaminophen [Percocet 5/325 mg Tab] 1 tab PO Q4 PRN #20 tab PRN Reason: Pain, Severe (8-10) oxyCODONE/Acetaminophen [Percocet 5/325 mg Tab] 1 tab PO Q4H PRN #20 tab PRN Reason: pain - Follow Up Plan Condition: STABLE Disposition: HOME/ ROUTINE Additional Instructions: final dx, rib fx, pneumothorax resolved f/u rmg1 wk, repeat ct 2 wks. cleared by icu, pulm, surgery for dc. rte dprn, meds per med rec pt resps even adn unalbroed. katie breakfast
== END 2016-08-27 11:00 | disposition home or self-care (01) | DRG 200 ==
LOC: H.ER 23:33 → H.ERHOLD 08-26 03:00 → H.ICU/CCU 08-26 03:57
PROVIDERS: ADMIT Family Medicine; ATTEND Family Medicine
DX: S27.0XXA Traumatic pneumothorax, initial encounter (principal); S22.42XA Multiple fractures of ribs, left side, initial encounter for closed fracture; J44.9 Chronic obstructive pulmonary disease, unspecified; W10.9XXA Fall (on) (from) unspecified stairs and steps, initial encounter; Y93.9 Activity, unspecified; Y92.9 Unspecified place or not applicable; Y99.9 Unspecified external cause status; F17.210 Nicotine dependence, cigarettes, uncomplicated; E78.5 Hyperlipidemia, unspecified; F41.9 Anxiety disorder, unspecified; E86.0 Dehydration; I34.1 Nonrheumatic mitral (valve) prolapse; N18.9 Chronic kidney disease, unspecified; Z87.442 Personal history of urinary calculi; Z87.440 Personal history of urinary (tract) infections; E78.00 Pure hypercholesterolemia, unspecified; D72.829 Elevated white blood cell count, unspecified